=== PATIENT | male | born 1985 | race Caucasian/White ===

== ENCOUNTER 2024-05-24 10:35 | Emergency (ER) | payer OTHER, SELFPAY ==
--- NOTE | ~2024-05-24 | XR_ITS ---
EXAMINATION: XR chest 2V DATE: 05/24/2024 11:20 INDICATION: Cough and congestion. TECHNIQUE: Frontal and lateral views of the chest were obtained. COMPARISON: Chest 2 views 12/28/2016 FINDINGS: A calcified right lung nodule and calcified right hilar lymph nodes are consistent with old granulomatous disease. No pleural effusion or pneumothorax. The heart size is normal. IMPRESSION: 1. No acute cardiopulmonary disease. Reviewed, dictated and finalized at location A. MERCE ANALYST
[2024-05-24 10:44] VITALS: BP 157/87; PULSE 87; RESP 18; TEMP 36.8; O2SAT 99
[2024-05-24 10:53] VITALS: BP 157/87; PULSE 87; RESP 18; TEMP 36.8; O2SAT 99
--- NOTE | 2024-05-24 10:59 | ED_ITS ---
HPI - URI/Sore Throat General Chief Complaint: Upper Respiratory Infection Stated Complaint: Congestion Time Seen by Provider: 05/24/24 11:03 Source: patient, RN notes reviewed and old records reviewed Mode of arrival: ambulatory Limitations: no limitations History of Present Illness HPI Narrative: 38 year old male who presents to [facility] care with 3-4 day history of cough with congestion with patient expectorating brown green phlegm, Patient reports that he has had some chills and sweats. unknown for sure if fever. Patient reports no sore throat or any ear pain, admits to some dyspnea when he gets to coughing a lot.Patient reports that he has been taking Mucinex and also some Tylenol for his symptoms. MD elicited complaint: cough, rhinorrhea, nasal congestion and other (chills and sweats) Pertinent past history: pneumonia (with sepsis) and other (tobacco use) Onset (ago): day(s) (3-4) Pain scale (0-10): 4 Description of mucous: green and other (brownish) Able to tolerate fluids by mouth: Yes Treatments prior to arrival: acetaminophen and other (Mucinex) Related Data Home Medications Medication Instructions Recorded Confirmed Allergy Med. 05/24/24 omeprazole 05/24/24 Allergies Allergy/AdvReac Type Severity Reaction Status Date / Time No Known Allergies Allergy Unverified 05/24/24 10:44 Review of Systems Review of Systems: CONSTITUTIONAL:Reports malaise, chills, sweats, no known documented fever. EYES: Denies visual changes, redness, or discharge. ENT: Reports rhinorrhea, congestion, no sinus pain,no otalgia and no sore throat. CARDIOVASCULAR: Denies chest pain, palpitations, or edema. RESPIRATORY: Reports productive cough.? Denies acute dyspnea, states some shortness of breath when he gets coughing a lot. GASTROINTESTINAL: Denies abdominal pain, nausea, vomiting, diarrhea SKIN: Denies rash or itching. MUSCULOSKELETAL: Denies myalgia. NEUROLOGIC: Denies headache. All systems reviewed & are unremarkable except as noted in HPI and below PMFSH Past Medical History Medical History (Updated 05/25/24 @ 00:00 by Jose Francisco Conroy) GERD (gastroesophageal reflux disease) Pneumonia with sepsis Surgical History Surgical History (Updated 05/24/24 @ 11:23 by Mar Barragan NP) History of tonsillectomy Social History Social History (Updated 05/24/24 @ 11:22 by Mar Barragan NP) Smoking status: Current every day smoker Tobacco type: cigarettes Alcohol intake: current Substance use type: does not use Living arrangements: with family Gender identity (if verbalized by the patient): Male Comments At time of signature, agree with nursing past medical, surgical, social and family history. There is no relevant family history pertinent to the presenting complaint Exam Narrative: GENERAL: Well-appearing, well-nourished, and in no acute distress. HEAD: Normocephalic EYES: PERRLA, conjunctivae clear ENT: Nares clear, turbinates edematous and erythematous, clear nasal discharge. Mucous membranes moist. TM pearly esquivel with dull light reflex bilaterally; no tragal tenderness. Oropharynx erythematous without lesions. Tonsils not present and without exudate, no drooling, no hoarseness, no trismus, uvula midline.post nasal drainage noted NECK: Supple. No lymphadenopathy CHEST: coarse in bases on auscultation, breath sounds equal. No wheezing, rhonchi, rales, or stridor. No respiratory distress, speaks in full sentences.productive coughSAO2 99% on room air HEART: Regular rate and rhythm. No murmur heard. SKIN: Warm, dry, no rash. NEURO: Alert and oriented x3. PSYCH: Normal mood and affect Course Course Emergency Course: Patient is aware of diagnosis, understands and agrees to treatment plan.? Anticipatory guidance given.? Patient agrees to follow-up as directed and is aware of reasons to seek care at the emergency department. Portions of this record may have been created with voice recognition software Level of Care: Express Care Visit Vital Signs Vital signs: Vital Signs Temperature 36.8 C 05/24/24 10:44 Pulse Rate 87 05/24/24 10:44 Respiratory Rate 18 05/24/24 10:44 Blood Pressure 157/87 H 05/24/24 10:44 Pulse Oximetry 99 05/24/24 10:44 Oxygen Delivery Room Air 05/24/24 10:44 Temperature 36.8 C 05/24/24 10:53 Pulse Rate 87 05/24/24 10:53 Respiratory Rate 18 05/24/24 10:53 Blood Pressure 157/87 H 05/24/24 10:53 Pulse Oximetry 99 05/24/24 10:53 Oxygen Delivery Room Air 05/24/24 10:53 reviewed MDM - URI/Sore Throat MDM Narrative Medical decision making narrative: Differential diagnosis considered: Rousseau virus, strep pharyngitis, allergic rhinitis, upper respiratory tract infection, sinusitis, rhinosinusitis, nasopharyngitis. viral pharyngitis, otitis media, otitis externa, pneumonia, bronchitis, viral cough syndrome, viral syndrome, and influenza.? Exam findings show no acute concerns or changes; patient is non-toxic appearing and is in no distress.? Patient is appropriate for outpatient treatment and follow-up. Differential Diagnosis Differential diagnosis: Likely upper respiratory infection, viral infection, bronchitis and other (acute cough and congestion) Medical Records Attestation: I reviewed the patient's medical records. Lab Data Attestation: I reviewed the patient's lab results. Imaging Data Attestation: I personally reviewed and interpreted this imaging study as follows: My impression: no acute cardiopulmonary disease Radiologist's impression: [place] [address] XRay Report Signed Patient: Jacinto Monroy : 1985 MR#: [id number] Age: 38 Acct:[id number] Loc: [facility] ADM Date: 05/24/24Attending Dr: Ordering Physician: Mar Barragan APRN Date of Service: 05/24/24 Procedure(s): XR chest 2V Accession Number(s): [id number] cc: Erika, Flako KIM; Mar Barragan APRN~ EXAMINATION: XR chest 2V DATE: 05/24/2024 11:20 INDICATION: Cough and congestion. TECHNIQUE: Frontal and lateral views of the chest were obtained. COMPARISON: Chest 2 views 12/28/2016 FINDINGS: A calcified right lung nodule and calcified right hilar lymph nodes are consistent with old granulomatous disease. No pleural effusion or pneumothorax. The heart size is normal. IMPRESSION: 1. No acute cardiopulmonary disease. Reviewed, dictated and finalized at location A. E INFORMATICIST Dictated By: Elliot Thapa MD 05/24/24 1136 Signed By: <Electronically signed by Elliot Thapa MD in OV> Critical Care Time Critical Care Time Critical Care Time: No Discharge Plan Discharge Clinical Impression: Bronchitis Patient Disposition: Home, Self-Care Condition: Stable Instructions: Antibiotic Form, Acute Bronchitis (ED) Additional Instructions: Increase fluids especially juices and water [id number] cough and cold medicine of your choice for your symptoms Zyrtec Claritin or Lorraine daily may include Coricidin brand decongestant due to elevation of blood pressure Continue your inhaler/nebulizer as directed Steroids as directed--take with food heat to the face 20-30 minutes 4-6 times a day for pain Salt water gargles, throat lozenges or throat sprays as desired Antibiotic as directed--finish the medication Tylenol or ibuprofen for any fever pain If your symptoms persist, change or worsen significantly before you can contact your personal physician then please, without delay, go to the emergency department for further evaluation. Follow-up with PCP in 7-10 days or sooner if needed Follow up with PCP soon in regards to your blood pressure which is elevated above threshold for referral. Blood pressure above 120/80 may indicate pre- hypertension. Blood 157/87 Prescriptions: New azithromycin 250 mg tablet See Rx Instructions .ROUTE .COMPLEX Qty: 6 0RF Rx Instructions: For 250 mg dose pack: take 500 mg today (day 1), then 250 mg for 4 days (days 2-5) prednisone 20 mg tablet 20 mg PO BID Qty: 10 0RF albuterol sulfate 90 mcg/actuation HFA aerosol inhaler 2 puff inhalation QID PRN (Reason: shortness of breath or wheezing) Qty: 8.5 0RF No Action Allergy Med. omeprazole Follow-up/Referrals: Erika,MD Flako [Primary Care Provider] - Time of Disposition: 11:47 Quality Beck Coma Scale Eyes: Open Verbal: Oriented and Alert Motor: Follows Commands [place] Coma Total Score: 15
== END 2024-05-24 11:49 | disposition home or self-care (01) ==
PROVIDERS: Emergency Provider Registered Nurse; PCP Hospitalist
DX: J40 Bronchitis, not specified as acute or chronic (principal); F17.210 Nicotine dependence, cigarettes, uncomplicated; K21.9 Gastro-esophageal reflux disease without esophagitis
CPT/HCPCS: 71046; 99213; G0463

== ENCOUNTER 2024-10-06 10:21 | Emergency (ER) | payer OTHER, SELFPAY ==
[2024-10-06 10:28] VITALS: BP 153/110; PULSE 102; RESP 16; TEMP 36.7; O2SAT 96
--- NOTE | 2024-10-06 10:28 | ED_ITS ---
HPI - URI/Sore Throat General Chief Complaint: Upper Respiratory Infection Stated Complaint: Eye Problem/Left Ear Pain/Congestion Time Seen by Provider: 10/06/24 10:46 Source: patient, RN notes reviewed and old records reviewed Mode of arrival: ambulatory Limitations: no limitations History of Present Illness HPI Narrative: 38-year-old male presents to the [facility] with 1 day history of left ear pain. Sinus congestion for 4 days, clear eye drainage for day. Has taking cold and flu medication with no relief Related Data Home Medications ?Medication ?Instructions ?Recorded ?Confirmed ?Last Taken ?Type Allergy Med. 05/24/24 Unknown History omeprazole 05/24/24 Unknown History Allergies Allergy/AdvReac Type Severity Reaction Status Date / Time No Known Allergies Allergy Unverified 10/06/24 10:31 Review of Systems Review of Systems: All systems reviewed & are unremarkable except as noted in HPI and below Constitutional: Constitutional: Reports no additional constitutional complaints ENT: Reports as per HPI Cardiovascular: Cardiovascular: Reports no additional cardiovascular complain ts, Denies chest pain and Denies dyspnea Respiratory: Respiratory: Reports no additional respiratory complaints, Denies chest congestion, Denies cough and Denies dyspnea Musculoskeletal: Musculoskeletal: Reports no additional musculoskeletal complaints Integumentary/Breasts: Skin/Breast: Reports system reviewed and no additional complaints, except as docu PMFSH Past Medical History Medical History GERD (gastroesophageal reflux disease) Pneumonia with sepsis Surgical History Surgical History History of tonsillectomy Social History Social History Smoking status: Current every day smoker Tobacco type: cigarettes Alcohol intake: current Substance use type: does not use Living arrangements: with family Gender identity (if verbalized by the patient): Male Comments At the time of my signature, I reviewed and agree with the nursing past medical, surgical, social, and family history. There is no relevant family history pertinent to the patient complaint. Exam Const: General: cooperative, healthy appearing, comfortable, no acute distress, well developed, alert and well nourished Nutritional Appearance: well nourished Orientation/consciousness: patient oriented x3 Limitations: no limitations HENMT: Head: normal to inspection Ears: hearing grossly normal bilaterally, external ears normal, EAC's normal, mastoids normal, no periauricular adenopathy and TM abnormal bulging on the left and erythematous on the left Face/Nose/Sinus: Normal external nose present, Abnormal mucous membranes and turbinates present boggy and erythematous, Nasal discharge present and sinus tenderness Mouth: Yes Normal oral and palatal mucosa present, Yes lip normal, Yes tongue normal and Yes moist mucous membranes Throat: posterior oropharynx normal, uvula midline and no uvular edema Eyes: General: appearance normal, both eyes and all related structures Alignment and Position: alignment normal Neck: Neck: normal visual inspection, full ROM, no lymphadenopathy and no meningeal signs Chest: Chest palpation & inspection: normal inspection of the chest Resp: Effort & Inspection: normal respiratory effort and able to speak in complete sentences Auscultation: clear to auscultation bilaterally, no crackles, no rales, no rhonchi and no wheezes Cardio: Rate: regular rate Skin: General skin exam: normal color and no rashes or lesions noted Neuro: General: patient oriented x3, gait normal, moves all extremities and no meningeal signs Cognition (Neuro): normal cognition Speech: normal speech Gait exam (Neuro): Normal gait present Extrem: General: normal to inspection, full ROM, capillary refill normal and normal gait Psych: Appearance: grossly normal and well kempt Mental Status: mental status grossly normal Speech and movement: Normal speech and movement present and Clear speech present Affect: normal affect Attitude: cooperative Course Course Level of Care: Express Care Visit Vital Signs Vital signs: Vital Signs Temperature 98.1 F 10/06/24 10:28 Pulse Rate 102 H 10/06/24 10:28 Respiratory Rate 16 10/06/24 10:28 Blood Pressure 153/110 H 10/06/24 10:28 Pulse Oximetry 96 10/06/24 10:28 Oxygen Delivery Room Air 10/06/24 10:28 Temperature 98.1 F 10/06/24 10:28 Pulse Rate 102 H 10/06/24 10:28 Respiratory Rate 16 10/06/24 10:28 Blood Pressure 155/99 H 10/06/24 10:32 Pulse Oximetry 96 10/06/24 10:28 Oxygen Delivery Room Air 10/06/24 10:28 Reviewed MDM - URI/Sore Throat MDM Narrative Medical decision making narrative: Patient sitting in exam room. Nontoxic, vitals stable. Patient presents with 4 day history of sinus congestion, left ear pain for 1 day. Patient appropriate for outpatient treatment of left otitis media and sinusitis. Discharge instructions reviewed with patient, as well as provided in writing per nursing staff. The instructions also include specific and strict return/GO TO THE ER as well as f/u information. All questions have been answered, and the patient deny any further questions with discharge and discharge plan. Some parts of this dictation were generated by voice recognition software and may contain typographical and/or grammatical inaccuracies. Differential Diagnosis Differential diagnosis: Likely upper respiratory infection, otitis media, sinusitis, viral infection, bronchitis, influenza and pharyngitis Critical Care Time Critical Care Time Critical Care Time: No Discharge Plan Discharge Clinical Impression: Acute left otitis media Sinusitis Qualifiers: Sinusitis location: pansinusitis Chronicity: acute Recurrence: not specified as recurrent Qualified Code(s): J01.40 - Acute pansinusitis, unspecified Patient Disposition: Home Condition: Stable Instructions: Antibiotic Form, Sinusitis (ED), Ear Infection (GEN) Additional Instructions: It is very important to treat your symptoms. Drink plenty of water, Gatorade, Pedialyte, ice pops or Jell-O. -Alternate Tylenol and Motrin per package directions for fever or pain. You can alternate every 4 hours -Antihistamine medication such as Zyrtec/Claritin/Lorraine during the day can help improve symptoms. -doing daily nasal irrigations can help relieve pressure your sinuses. Things like a Neti pot -Use Flonase twice a day for 5 days then daily to help reduce the inflammation and dry up your sinuses. -You can also use Mucinex. Be sure to drink plenty of water with this medication at least 8 ounces with every dose and it is important to drink 8 to 10 glasses of water per day. Water is a natural decongestant -Eat and drink things that are easy to swallow, like tea or soup, or popsicles. -Oral rinses such as: Salt water gargles and/or may use topical anesthetic (eg. Chloraseptic spray) or lozenges to relieve dryness or throat pain). -Frequent hand washing or hand drink waiter is one of the best ways to prevent spread of infection. -Using a vaporizer or humidifier at night will also help thin secretions and help with coughing up phlegm. -Follow up with primary care provider in 7-10 days if condition is not improving - For new or worsening symptoms go directly to the nearest ER Patient Language: Bengali Prescriptions: New amoxicillin 875 mg tablet 875 mg PO Q12H Qty: 20 0RF No Action Allergy Med. omeprazole azithromycin 250 mg tablet See Rx Instructions .ROUTE .COMPLEX Qty: 6 0RF Rx Instructions: For 250 mg dose pack: take 500 mg today (day 1), then 250 mg for 4 days (days 2-5) prednisone 20 mg tablet 20 mg PO BID Qty: 10 0RF albuterol sulfate 90 mcg/actuation HFA aerosol inhaler 2 puff inhalation QID PRN (Reason: shortness of breath or wheezing) Qty: 8.5 0RF Follow-up/Referrals: Erika,MD Flako [Primary Care Provider] - 2 Weeks ([facility] care follow up ) Stand Alone Forms: Work/School Release IP Time of Disposition: 10:55
[2024-10-06 10:32] VITALS: BP 155/99
--- OUTSIDE RECORDS SUMMARY | 2024-10-06 10:56 | XMS_ITS | Clinical Summary ---
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 Active omeprazole (PriLOSEC) 40 mg capsuleIndicatio ns:Gastroesophag eal reflux disease without esophagitis Take 1 capsule (40 mg total) by mouth daily 90 capsule 3 01/24/2024 01/24/20 25 Active Active Problems Problem Noted Date Diagnosed Date Elevated liver enzymes 01/24/2024 Assessment & Plan (01/24/2024 4:04 PM CDT): AST and ALT consistently elevated No prior imaging Drinks 4-6 drinks approx 4 times/week Discussed reducing amount of alcohol Recheck labs 6 months; if still elevated will order liver US External hemorrhoids 01/20/2022 Assessment & Plan (02/11/2023 9:41 AM CDT): Continue stool softener to avoid straining. Sitz baths for comfort. Okay to return to work with activities unrestricted. Patient will call us back with any further questions or concerns. Assessment & Plan (01/28/2023 9:36 AM CDT): Patient will continue with a good bowel regimen to avoid straining. Continue Sitz baths for comfort. We will see him back in several weeks to reassess his progress. He can call sooner if anything changes. Assessment & Plan (01/20/2022 2:26 PM CDT): Patient continues to have some blood in stool; colonoscopy 1 year ago demonstrated hemorrhoids, last at that time Patient reports no pain associated with hemorrhoids, has blood for few days every 2-3 weeks; mostly in the toilet after bowel movement Will refer to GI for further management BRBPR (bright red blood per rectum) 12/19/2020 Assessment & Plan (12/03/2022 11:38 AM CDT): Patient with prolapsing grade 3 hemorrhoids. At least in the left lateral hemorrhoidal column and likely in the right anterior as well. We will set him up for hemorrhoidectomy. We have preliminarily discussed good bowel habits with the patient to prevent these from happening in the future. Pre-admission testing will be sent in. All questions answered. Assessment & Plan (02/04/2021 1:30 PM CDT): Colonoscopy and IRC if needed Assessment & Plan (12/19/2020 12:53 PM CDT): Patient reports that he has had hemorrhoids for long duration, however recently has noted increased amounts of blood in stool and toilet Will refer to GI for further evaluation and possible colonoscopy to rule out other sources of lower GI bleeding Encouraged patient to use stool softener as well as methods in techniques to reduce constipation Will follow-up after GI and possible colonoscopy for other treatments as needed Class 1 obesity due to exces s calories without serious comorbidity with body mass index (BMI) of 32.0 to 32.9 in adult 12/19/2020 Assessment & Plan (12/19/2020 12:55 PM CDT): Stable, discussed with patient importance of dietary control for weight loss, encouraged portion control decreasing overall total calories per day Patient has a generally active job Low testosterone in male 07/15/2018 Assessment & Plan (07/15/2018 1:04 PM MANAGER COMPENSATION): Images from the original note were not included. Testosterone 240 - 950 ng/dL 234 Comment: 2 weeks ago was 232 Moderate tobacco use disorder 06/17/2018 Assessment & Plan (01/20/2022 2:27 PM CDT): Decreasing tobacco use; encouraged patient continue to work on changes If patient desires, will discuss about medical options Assessment & Plan (12/19/2020 12:54 PM CDT): Stable, improving Patient has been working on decreasing tobacco use, currently smoking about 1/2 pack per day At this time patient would like to defer medical therapy, and will follow-up at future date if he is unable to successfully quit on his own Assessment & Plan (07/15/2018 8:44 AM MANAGER COMPENSATION): Quit Smoking https://smokefree.gov/ Nicotine replacement therapy (NRT) is the most commonly used family of quit smoking medications. NRT reduces withdrawal feelings by giving you a small controlled amount of nicotine?but none of the other dangerous chemicals found in cigarettes. This small amount of nicotine helps satisfy your craving for nicotine and reduces the urge to smoke. NRT can t do all the work. It can help with withdrawal and cravings. But it won t completely take away the urge to smoke. Even if you use NRT to help you stop smoking, quitting can still be hard. Combining NRT with other strategies can improve your chances of quitting and staying quit. To give yourself the best chance for success, explore other quit methods you can combine with medication. Also think about: Developing a quit plan. Using quit programs such as SmokefreeTXT or calling a quitline. Using the [employer]idy[employer] jose for tips and inspiration to help you be smokefree. Prepare, Reduce creavings and Triggers, Reduce stress, Get Active, Eat Healthy Gum, Patches, Inhaler, lozenges, nasal spray or medications like Wellbutrin, Chantix Remind yourself of the rewards of quitting to help yourself stay on track: 20 minutes: heart rate, blood pressure drop 12 hours: carbon monoxide in blood stream drops to normal 2 weeks-3 months: circulation, lung function improve; heart attack risk begins to drop 1-9 months: cough less, breathe easier 1 year: risk of coronary heart disease cut in half 2-5 years: risk of cancer of mouth, throat, esophagus, bladder cut in half; stroke risk is reduced to that of a nonsmoker 10 years: half as likely to from lung cancer; risk of kidney or pancreatic cancer decreases 15 years: risk of coronary heart disease same as non-smoker s risk EXTRA MONEY Down to 5 per day Could not tolerate the patches Could not tolerate the gum Will try Chantix Went over side effects. Patient will notify me if experiences side effects. Also offered Wellbutrin. Assessment & Plan (06/18/2018 4:56 PM MANAGER COMPENSATION): Quit Smoking https://smokefree.gov/ Nicotine replacement therapy (NRT) is the most commonly used family of quit smoking medications. NRT reduces withdrawal feelings by giving you a small controlled amount of nicotine?but none of the other dangerous chemicals found in cigarettes. This small amount of nicotine helps satisfy your craving for nicotine and reduces the urge to smoke. NRT can t do all the work. It can help with withdrawal and cravings. But it won t completely take away the urge to smoke. Even if you use NRT to help you stop smoking, quitting can still be hard. Combining NRT with other strategies can improve your chances of quitting and staying quit. To give yourself the best chance for success, explore other quit methods you can combine with medication. Also think about: Developing a quit plan. Using quit programs such as SmokefreeTXT or calling a quitline. Using the [employer] jose for tips and inspiration to help you be smokefree. Prepare, Reduce creavings and Triggers, Reduce stress, Get Active, Eat Healthy Gum, Patches, Inhaler, lozenges, nasal spray or medications like Wellbutrin, Chantix Remind yourself of the rewards of quitting to help yourself stay on track: 20 minutes: heart rate, blood pressure drop 12 hours: carbon monoxide in blood stream drops to normal 2 weeks-3 months: circulation, lung function improve; heart attack risk begins to drop 1-9 months: cough less, breathe easier 1 year: risk of coronary heart disease cut in half 2-5 years: risk of cancer of mouth, throat, esophagus, bladder cut in half; stroke risk is reduced to that of a nonsmoker 10 years: half as likely to from lung cancer; risk of kidney or pancreatic cancer decreases 15 years: risk of coronary heart disease same as non-smoker s risk EXTRA MONEY Wants to stop Trying to cut back Smokes 1/2 pack per day Tried patches before and did not tolerate them Will try nicotine gum alternating with regular bubble gum Elevated blood pressure reading 06/17/2018 Assessment & Plan (01/24/2024 4:03 PM CDT): BP at visit; 142/94 States his blood pressure is within normal range at home Continue to monitor BP at home Work on dietary modifications Assessment & Plan (07/15/2018 8:49 AM MANAGER COMPENSATION): BP still elevated over 130/80 Will increase Lisinopril to 10 mg daily Pt. To send in BP readings Denies side effects Lifestyle changes can help you control and prevent high blood pressure, even if you're taking blood pressure medication. Here's what you can do: Eat healthy foods. Eat a healthy diet. Try the Dietary Approaches to Stop Hypertension (DASH) diet, which emphasizes fruits, vegetables, whole grains, poultry, fish and low-fat dairy foods. Get plenty of potassium, which can help prevent and control high blood pressure. Eat less saturated fat and trans fat. Decrease the salt in your diet. A lower sodium level -- 1,500 milligrams (mg) a day -- is appropriate for people 51 years of age or older, and individuals of any age who are black or who have hypertension, diabetes or chronic kidney disease. Maintain a healthy weight. Keeping a healthy weight, or losing weight if you're overweight or obese, can help you control your high blood pressure and lower your risk of related health problems. If you're overweight, losing even 5 pounds (2.3 kilograms) can lower your blood pressure. Increase physical activity. Regular physical activity can help lower your blood pressure, manage stress, reduce your risk of several health problems and keep your weight under control. Limit alcohol. Even if you're healthy, alcohol can raise your blood pressure. If you choose to drink alcohol, do so in moderation. For healthy adults, that means up to one drink a day for women of all ages and men older than age 65, and up to two drinks a day for men age 65 and younger. One drink equals 12 ounces of beer, 5 ounces of wine or 1.5 ounces of 80-proof liquor. Don't smoke. Tobacco injures blood vessel ruby and speeds up the process of hardening of the arteries. If you smoke, ask your doctor to help you quit. Manage stress. Reduce stress as much as possible. Practice healthy coping techniques, such as muscle relaxation, deep breathing or meditation. Getting regular physical activity and plenty of sleep can help, too. Notify the office for blood pressure greater than 130/80 Assessment & Plan (06/18/2018 5:09 PM MANAGER COMPENSATION): Pt. Has consistent BP greater than 130/80, smokes, BMI 33, Mixed hyperlipidemia, Family hx Reports having a hard time getting a full erection also with not being able to keep an erection Will start a low dose of Lisinopril 5 mg daily. Pt to take BP and record. Try to modify lifestyle with hopes in improving BP and Lipid panel. Lifestyle changes can help you control and prevent high blood pressure, even if you're taking blood pressure medication. Here's what you can do: Eat healthy foods. Eat a healthy diet. Try the Dietary Approaches to Stop Hypertension (DASH) diet, which emphasizes fruits, vegetables, whole grains, poultry, fish and low-fat dairy foods. Get plenty of potassium, which can help prevent and control high blood pressure. Eat less saturated fat and trans fat. Decrease the salt in your diet. A lower sodium level -- 1,500 milligrams (mg) a day -- is appropriate for people 51 years of age or older, and individuals of any age who are black or who have hypertension, diabetes or chronic kidney disease. Maintain a healthy weight. Keeping a healthy weight, or losing weight if you're overweight or obese, can help you control your high blood pressure and lower your risk of related health problems. If you're overweight, losing even 5 pounds (2.3 kilograms) can lower your blood pressure. Increase physical activity. Regular physical activity can help lower your blood pressure, manage stress, reduce your risk of several health problems and keep your weight under control. Limit alcohol. Even if you're healthy, alcohol can raise your blood pressure. If you choose to drink alcohol, do so in moderation. For healthy adults, that means up to one drink a day for women of all ages and men older than age 65, and up to two drinks a day for men age 65 and younger. One drink equals 12 ounces of beer, 5 ounces of wine or 1.5 ounces of 80-proof liquor. Don't smoke. Tobacco injures blood vessel ruby and speeds up the process of hardening of the arteries. If you smoke, ask your doctor to help you quit. Manage stress. Reduce stress as much as possible. Practice healthy coping techniques, such as muscle relaxation, deep breathing or meditation. Getting regular physical activity and plenty of sleep can help, too. Notify the office for blood pressure greater than 130/80 Genital warts 06/17/2018 Assessment & Plan (07/15/2018 8:47 AM MANAGER COMPENSATION): Large number/cluster of genital warts to the anterior side/base of the penis No improvement with Compound W It looks per MR that he was given Imiquimod cream in 2014. Has been present and gradually worsening over the last 6 months to year but unsure if it has ever went away. By the looks of it, patient needs surgical removal and ongoing treatment and suppression of warts. Will put in a urology consult for them to remove genital warts. Since it may take several weeks to months to get an appointment, will have him do topical treatment Surgical excision removes warts promptly, providing a wart-free state. It can be used in patients with limited, average, or extensive wart involvement. [6] Surgical excision may serve as a precursor to other treatments in extensive cases by debulking widely involved areas. [6] Methods include tangential scissor excision, shave excision, curettage, and electrosurgery. Alternative therapies include CO? laser ablation and electrodessication. These more invasive techniques are useful for patients with a large area of wart involvement. They render a patient free of warts within 1 visit. Warts >10 mm: Surgical excision (or if persistent) Adjunctive: Imiquimod applied as pretreatment Genital Warts Apply 5% cream to affected area qhs for 3 nights/week Apply at bedtime and wash off in 6-10 hours May repeat weekly cycles for up to 16 weeks Treatment can be challenging, as there is no cure and recurrences are common. Referral made for Derm at [facility] Having a hard time getting appointment-he states that they have problems with his insurance Will call today and get him an appointment-if not, will refer somewhere else Appointment made for August 09, 2018 2:00 Assessment & Plan (06/18/2018 6:02 PM MANAGER COMPENSATION): Large number/cluster of genital warts to the anterior side/base of the penis No improvement with Compound W It looks per MR that he was given Imiquimod cream in 2014. Has been present and gradually worsening over the last 6 months to year but unsure if it has ever went away. By the looks of it, patient needs surgical removal and ongoing treatment and suppression of warts. Will put in a urology consult for them to remove genital warts. Since it may take several weeks to months to get an appointment, will have him do topical treatment Surgical excision removes warts promptly, providing a wart-free state. It can be used in patients with limited, average, or extensive wart involvement. [6] Surgical excision may serve as a precursor to other treatments in extensive cases by debulking widely involved areas. [6] Methods include tangential scissor excision, shave excision, curettage, and electrosurgery. Alternative therapies include CO? laser ablation and electrodessication. These more invasive techniques are useful for patients with a large area of wart involvement. They render a patient free of warts within 1 visit. Warts >10 mm: Surgical excision (or if persistent) Adjunctive: Imiquimod applied as pretreatment Genital Warts Apply 5% cream to affected area qhs for 3 nights/week Apply at bedtime and wash off in 6-10 hours May repeat weekly cycles for up to 16 weeks Treatment can be challenging, as there is no cure and recurrences are common. Other male erectile dysfunction 06/17/2018 Assessment & Plan (07/15/2018 8:43 AM MANAGER COMPENSATION): Reports unable to get a complete erection, unable to sustain an erection. CheckedTestosterone level-low x 2 Will check on Testosterone replacement Pt. Does seem to have elevated BP's at his visits, family hx of htn, heart disease. He smokes, obese, HLD. Talked to him regarding heart diease and association with erectile dysfunction. Sometimes this is an early sign in young med. Talked to him about losing wt., stop smoking, improve diet and having a BP less than 130/80. Erectile Dysfunction Management Reduce stress. Try alternative sexual techniques for closeness, fondling, foreplay and mutual masturbation. Get regular exercise. Stop smoking and reduce Alcohol intake. Maintain a normal blood pressure and try to lose weight. If you have diabetes, you need to manage your blood sugar to have your A1C as close to your goal of less than 7. If you have high cholesterol, you need to reduce it to the normal range by eating a heart healthy diet. If you are depressed, you may need to see a therapist and be started on medication. Couples Counseling may help. May try a Vitamin E daily supplement. Green[place] Red Ginseng 900 mg three times a day supplement may help. Some medications may help if not contraindicated, like Viagra (Sildenafil), Levitra (Vardenafil), Cialis (Tadalafil). Assessment & Plan (06/18/2018 4:59 PM MANAGER COMPENSATION): Reports unable to get a complete erection, unable to sustain an erection Will check Testosterone level Pt. Does seem to have elevated BP's at his visits, family hx of htn, heart disease. He smokes, obese, HLD. Talked to him regarding heart diease and association with erectile dysfunction. Sometimes this is an early sign in young med. Talked to him about losing wt., stop smoking, improve diet and having a BP less than 130/80. Erectile Dysfunction Management Reduce stress. Try alternative sexual techniques for closeness, fondling, foreplay and mutual masturbation. Get regular exercise. Stop smoking and reduce Alcohol intake. Maintain a normal blood pressure and try to lose weight. If you have diabetes, you need to manage your blood sugar to have your A1C as close to your goal of less than 7. If you have high cholesterol, you need to reduce it to the normal range by eating a heart healthy diet. If you are depressed, you may need to see a therapist and be started on medication. Couples Counseling may help. May try a Vitamin E daily supplement. [place]ic Red Ginseng 900 mg three times a day supplement may help. Some medications may help if not contraindicated, like Viagra (Sildenafil), Levitra (Vardenafil), Cialis (Tadalafil). Mixed hyperlipidemia 06/17/2018 Assessment & Plan (07/15/2018 1:13 PM MANAGER COMPENSATION): Lipid abnormalities are unchanged. Nutritional counseling was provided. Lipids will be reassessed in 6 months. Encourage healthy diet. Assessment & Plan (06/18/2018 5:05 PM MANAGER COMPENSATION): Lipid abnormalities are unchanged. Nutritional counseling was provided. Lipitor 10 mg daily Lipids will be reassessed in 6 months. Encouraged to stop smoking, improve his diet, loss wt. Reports family hx of htn, heart disease Will start on low dose statin LDL-131, CHO 232, Trig 301 Gastroesophageal reflux disease without esophagi tis 12/30/2017 Assessment & Plan (01/24/2024 4:03 PM CDT): Chronic, stable, well controlled Continue Omeprazole 40 mg daily Assessment & Plan (01/20/2022 2:26 PM CDT): Well controlled, continues to have some worsening symptoms on Prilosec 20 mg Increase Prilosec to 40 mg daily Atopic rhinitis 11/11/2013 Resolved Problems Problem Noted Date Diagnosed Date Resolved Date Obesity (BMI 30-39.9) 06/18/20182023 Assessment & Plan (07/15/2018 8:45 AM MANAGER COMPENSATION): Obesity is unchanged. Pt. Has been trying to eat healthier Discussed the patient's BMI. The BMI is above average; BMI management plan is completed. General weight loss/lifestyle modification strategies discussed (elicit support from others; identify saboteurs; non-food rewards, etc). Diet= low-carb Limit white bread, rice, pasta, potatoes, juice, energy drinks, coffee creamers with sugar, sugar sodas, candy, cake, cookies, ice cream. Be more careful with starchy vegetables like corn, carrots, and fruits. Stay away from processed foods, fast foods, fried foods. The cornerstone of this diet is lean grilled meats, green salads or cooked greens, fat-free milk, cottage cheese, nuts like [id number], protein bars with 10-15 g of protein and 20-30 g of carbohydrate. Choose whole grain breads and pastas, brown rice, sweet potatoes, read onions--these whole grains absorb more slowly thus blood sugar does not surge so high so quickly. Avoid drinking juice, eat a piece of fruit instead. Assessment & Plan (06/18/2018 4:54 PM MANAGER COMPENSATION): Obesity is unchanged. Discussed the patient's BMI. The BMI is above average; BMI management plan is completed. General weight loss/lifestyle modification strategies discussed (elicit support from others; identify saboteurs; non-food rewards, etc). Diet= low-carb Limit white bread, rice, pasta, potatoes, juice, energy drinks, coffee creamers with sugar, sugar sodas, candy, cake, cookies, ice cream. Be more careful with starchy vegetables like corn, carrots, and fruits. Stay away from processed foods, fast foods, fried foods. The cornerstone of this diet is lean grilled meats, green salads or cooked greens, fat-free milk, cottage cheese, nuts like [id number], protein bars with 10-15 g of protein and 20-30 g of carbohydrate. Choose whole grain breads and pastas, brown rice, sweet potatoes, read onions--these whole grains absorb more slowly thus blood sugar does not surge so high so quickly. Avoid drinking juice, eat a piece of fruit instead. Immunizations Immunization Administration Dates Next Due DTP 10/16/1991, 9,06/14/1987,1986,02/11/1987 HiB 09/21/1988 Influenza, Unspecified 04/29/2023(Deferr ed: Patient Refused),03/28/2022(Deferred: Patient Refused),01/01/2022(Deferred: Patient Refused),03/28/2021(Deferred: Patient Refused),06/28/2020(Deferred: Patient Refused),06/28/2020(Deferred: Patient Refused),03/28/2020(Deferred: Patient Refused),06/28/2019(Deferred: Patient Refused),06/28/2019(Deferred: Patient Refused) MMR 10/16/1991,04/13/1988 OPV 10/16/1991, 9,06/14/1987,1986,02/11/1987 Pfizer SARS-CoV-2 Monovalent Vaccination (12+ Yrs) PURPLE 09/26/2020,09/05/2020 Pneumococcal Conjugate Pcv20 01/01/2022 Tdap 01/24/2024,06/01/2011 Surgical History Surgery Date Site/Laterality Comments COLONOSCOPY 02/07/2021 1st HEMORRHOID SURGERY 01/20/2023 Medical History Medical History Date Comments Gastroesophageal reflux disease without esophagi tis 12/30/2017 Pneumonia Family History Medical History Relation Name Comments No Known Problems Brother 1 No Known Problems Brother 2 Hypertension Father Odell Monroy Diabetes Mother Marbella Monroy Diabetes type II Other Family hist ory of Diabetes -Type II; Relation Name Status Comments Brother 1 Alive Brother 2 Alive Father Odell Monroy Alive Mother Marbella Monroy Alive Other Social History Tobacco Use Types Packs/Day Years Used Date Smoking Tobacco: Every Day Cigarettes 0.5 15 Passive Smoke Exposure: Current Smokeless Tobacco: Never Tobacco Cessation:Ready to Q uit: Yes; Counseling Given: Not Answered Comments:Smoking History Packs/day: 0.5 Packs Alcohol Use Standard Drinks/Week Comments Yes 20 (1 standard drink = 0.6 oz pu re alcohol) [facility] [employer] Answer Date Recorded In the past 12 months has e Miro, gas, oil, or water Activation Life threatened to shut off services in your home? No 01/24/2024 Humiliation, Afraid, Rape, and Kick questionnair e Answer Date Recorded Within the last year, have y ou been afraid of your partner or ex-partner? No 01/24/2024 Within the last year, have y ou been humiliated or emotionally abused in other ways by your partner or ex-partner? No Within the last year, have y ou been kicked, hit, slapped, or otherwise physically hurt by your partner or ex-partner? No 01/24/2024 Within the last year, have y ou been raped or forced to have any kind of sexual activity by your partner or ex-partner? No 01/24/2024 Social Connection and Isolat ion Panel [NHANES] Answer Date Recorded In a typical week, how many times do you talk on the phone with family, friends, or neighbors? More than three times a week 01/24/2024 How often do you get togethe r with friends or relatives? More than three times a week 01/24/2024 How often do you attend chur or anabaptism services? More than 4 times per year 01/24/2024 Do you belong to any clubs o r organizations such as pentecostal groups, unions, fraternal or athletic groups, or school groups? Yes 01/24/2024 How often do you attend meet ings of the clubs or organizations you belong to? More than 4 times per year 01/24/2024 Are you , , di vorced, , never , or living with a partner? 01/24/2024 AUDIT-C Answer Date Recorded Q1: How often do you have a drink containing alcohol? 4 or more times a week 01/24/2024 Q2: How many drinks containi ng alcohol do you have on a typical day when you are drinking? 3 or 4 Q3: How often do you have si x or more drinks on one occasion? Monthly 01/24/2024 Overall Financial Resource Strain (CARDIA) Answe r Date Recorded How hard is it for you to pa y for the very basics like food, housing, medical care, and heating? Not hard at all 01/24/2024 PHQ-2 Answer Date Recorded PHQ-2 Total Score (If total score is 3 or more points, staff should administer the PHQ-9) 0 01/24/2024 [facility] Occupat ional [facility] - Occupational Stress Questionnaire Answer Date Recorded Do you feel stress - tense, restless, nervous, or anxious, or unable to sleep at night because your mind is troubled all the time - these days? To some extent 01/24/2024 Exercise Vital Sign Answer Date Recorde d On average, how many days pe r week do you engage in moderate to strenuous exercise (like a brisk walk)? 5 days 01/24/2024 On average, how many minutes do you engage in exercise at this level? 60 min 01/24/2024 Hunger Vital Sign Answer Date Recorded Within the past 12 months, y ou worried that your food would run out before you got the money to buy more. Never true 01/24/20 24 Within the past 12 months, t he food you bought just didn't last and you didn't have money to get more. Never true 01/24/2024 PRAPARE - Transportation Answer Date Re corded In the past 12 months, has l ack of transportation kept you from medical appointments or from getting medications? No 12/27 In the past 12 months, has l ack of transportation kept you from meetings, work, or from getting things needed for daily living? No 01/24/2024 PHQ-9 Answer Date Recorded PHQ-9 Total Score 0 01/24/2024 Housing Stability Vital Sign Answer Abilio e Recorded In the last 12 months, was t here a time when you were not able to pay the mortgage or rent on time? No 01/24/2024 In the past 12 months, how m any times have you moved where you were living? 0 01/24/2024 At any time in the past 12 m [facility], were you homeless or living in a fci (including now)? No 01/24/2024 Personal Safety Answer Date Recorded Have you ever been in or are you currently in a harmful physical or emotional relationship or is someone making you feel afraid or unsafe? 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 Gender Identity Not on file Sexual Orientation Not on file Obstetrics History Last Filed Vital Signs Vital Sign Reading Time Taken Comments Blood Pressure 142/94 01/24/2024 3:37 PM CDT Pulse 68 01/24/2024 3:37 PM CDT Temperature 36.7 C (98 F) 01/24/2024 3:37 PM CDT Respiratory Rate 16 01/24/2024 3:37 PM CDT Oxygen Saturation 98% 01/24/2024 3:37 PM CDT Inhaled Oxygen Concentration - - Weight 107.7 kg (237 lb 6.4 oz) 01/24/2024 3:37 PM CDT Height 182.9 cm (6') 01/24/2024 3:37 PM CDT Body Mass Index 32.2 01/24/2024 3:37 PM CDT Plan of Treatment Health Maintenance Due Date Last Done Comments Covid-19 Vaccine ( season) 2024 09/26/2020, 09/05/2020 Depression Screening 01/23/2025 01/24/2024, 01/01/2022, 12/19/2020, Additional history exists Regular Well Visit/Exam 18-64 01/23/2025 01/24/2024, 12/30/2017 Influenza Vaccine (Season Ended) 2025 DTaP/Tdap/Td Vaccine (8 - Td or Tdap) 01/23/2034 01/24/2024, 06/01/2011, 10/16/1991, Additional history exists Pneumococcal vaccine <65 Completed 01/01/2022 Hepatitis B Screening Completed 01/21/2024 Hepatitis C Screening Completed 01/21/2024 HPV Vaccines Aged Out No longer eligi ble based on patient's age to complete this topic Varicella Vaccines Discontinued Procedures Procedure Name Priority Date/Time Associated Diagnosis Comments HEPATITIS C ANTIBODY Routine 01/21/2024 2:44 PM CDT Encounter for hepatitis C screening test for low risk patient from Last 3 Months or Most Recently Relevant to Health Maintenance Results * Hepatitis C antibody Blood (01/21/2024 2:44 PM CDT) Hep C Ab Nonreactive Nonreactive Comment: Interpretive Data Nonreactive: Antibodies to HCV not detected. Does NOT exclude the possibility of recent exposure to HCV. Equivocal: Equivocal for HCV antibodies. Supplemental molecular testing will be automatically performed to determine infection status in accordance with current CDC screening recommendations. Reactive: Positive for HCV antibodies. This may represent current or past HCV infection. Supplemental molecular testing will be automatically performed to determine current infection status in accordance with current CDC screening recommendations. Interpretive data was last revised on 2019. Testing performed by: [facility], [address] [place] [address], [place]., [address] Blood 01/21/2024 2:44 PM CDT 01/21/2024 8:53 PM CDT us Gissel Sanders NP LAB MICROBIOLOGY - GENERAL ORDER ALFREDO Edited Result - Final CINDY COOK ([place]) 1 [facility] [place] [address] from Last 3 Months or Most Recently Relevant to Health Maintenance Insurance CIGNA IBEW CIGNA CIGNA Advance Directives For more information, please contact: [phone] * Full Code (Latest Code Status on File) Date Activated Date Inactivated Comments 04/03/2022 8:55 AM 04/03/2022 2:23 PM * Full Code Date Activated Date Inactivated Comments 04/03/2022 8:54 AM 04/03/2022 8:55 AM * Full Code Date Activated Date Inactivated Comments 02/07/2021 8:07 AM 02/07/2021 2:22 PM Care Teams Electric Crane Operator Relationship Specialty Start Date End Date Flako James MD [address] [place] [address] PCP - General Family Medicine 12/19/20
--- OUTSIDE RECORDS SUMMARY | 2024-10-06 10:56 | XMS_ITS ---
Care Plan - [facility] Created on: October 06, 2024 JASMINE APPIAH : 1985 Sex: Male Author Organization [facility] Address [address] [place] [id number] Phone Care Team Providers Care Aircraft Servicer Name Role Phone FAUSTO CAGE MD Primary Care Provider [phone] NINO KIM, GIBRAN Anthony
--- OUTSIDE RECORDS SUMMARY | 2024-10-06 10:56 | XMS_ITS | Clinical Summary ---
Author Organization [facility] Address [address] [place] [address] Phone Care Team Providers Care Laser/Electro Optics Technician Name Role Phone FAUSTO CAGE MD Primary Care Provider [phone] GIBRAN ONEILL MD Unavailable Unavailable Reason for Visit and Chief Complaint The Chief Complaint is: COVID exposure on to co-worker, sx of cough & PERSON off & on,along with runny nose-green draiange x 2d, also loss of taste this morning Plan of Treatment - The options include close observation - Last Documented On 06/02/2020 10:35AM ; [facility] - Watch for signs/symptoms of infection, return to the clinic if seen - Last Documented On 06/02/2020 10:35AM ; [facility] Patient is to quarantine for 14 days past last exposure OTC medication for fever and/or bodyaches Call clinic for worsening symptoms or concerns Go to ED for severe difficulty breathing or lethargy - Last Documented On 06/02/2020 10:35AM ; [facility] Pending Tests Order Diagnosis Results Due Ordering P rovider Lab COVID-19 PCR ([facility]) 06/09/20 JESSA BRUNO CLEAT MAKER -C Last Documented On 4 2:45PM ; [facility] Instructions to patient Watch for signs/symptoms of infection, return to the clinic if seen Last Documented On 0 10:30AM ; [facility] Assessments Includes: Assessments from this encounter Findings - Exposure to a viral disease - Last Documented On 06/02/2020 10:35AM ; [facility] - Viral syndrome - Last Documented On 06/02/2020 10:35AM ; [facility] Instructions Includes: Instructions from this encounter Instructions to patient Watch for signs/symptoms of infection, return to the clinic if seen Last Documented On 0 10:30AM ; [facility] Medical Equipment - Implanted Devices Includes: Current Devices No Medical Equipment Recorded Medications Administered Includes: Administered Medications from this encounter No Administered Medications Recorded Vital Signs Includes: Vital Signs from this encounter Vital Name 06/02/2020 10:10A Pulse Rate-Sitting (bpm) 108 Temp-Oral (F) 99 Oxygen Saturation (%) 98 Last Documented: On 06/02/2020 10:10A M ; [facility] Results Includes: Results discussed during this encounter No Results Recorded For Specified Dates History of Present Illness Includes: History of Present Illness from this encounter MILDRED APPIAH is a 34 year old male. Source of patient information was patient. - Not feeling fine - Feeling tired - Feeling poorly (malaise) - No fever - No chills - Headache - No facial pain - No sinus pain - No swollen glands in the neck - No eye symptoms - Nasal discharge - Nasal passage blockage (stuffiness) - Sore throat comes and goes - No ear symptoms - No chest pain or discomfort - No palpitations - Cough dry - Intermittent - No dyspnea - No wheezing - Decreased appetite - No nausea - No vomiting - No abdominal pain - No diarrhea - No increase in urinary frequency - No myalgias - No dizziness - No skin symptoms Patient works at the local [employer]. Denies any recent travel. Pt presents to the clinic with complaints of a dry cough, person, runny nose, nasal congestion, and intermittent sore throat. Pt denies sob, wheezing, or sinus pressure at this time. Pt states that he was exposed to a co worker on that tested positive on wednesday. Pt states that he lost his taste this am. Social History Description Last Updated No travel 06/02/2020 Last Documented On 0 10:35AM ; [facility] Smoking Status Unknown Medical History Includes: Medical History addressed during this encounter Description Last Updated Exposure to a contagious disease 020 Last Documented On 0 10:35AM ; [facility] Family History Includes: Family History addressed during this encounter No Family History Recorded Review of Systems Includes: Review of Systems from this encounter No Review of Systems Recorded Mental Status Includes: Mental Status from this encounter No Mental Status Recorded Functional Status Includes: Functional Status from this encounter No Functional Status Recorded Physical Exam Includes: Physical Exam from this encounter Encounters Encounter Provider Location Date Check-In Time Check-Out Time Diagnosis SICK VISIT JESSA BRUNO CLEAT MAKER-C [facility] 0 10:00AM 10:30AM Exposure To Contagious Viral Disease,Viral Syndrome Insurance Includes: Active Insurance Policies Plan Name Member ID Group # Subscriber Relationship Effect charlotte Dates - [id number] JASMINE APPIAH Self Clinical Notes Includes: Clinical Notes from this encounter No Clinical Notes Recorded
--- OUTSIDE RECORDS SUMMARY | 2024-10-06 10:56 | XMS_ITS | Referral Summary ---
Author Organization [facility] Address [address] [place] [address] Care Team Providers Care Cover Machine Operator Name Role Phone Flako James MD Primary Care Provider [phone] Allergies No known active allergies Medications chlorpheniramine [...] 07/15/2018 Assessment & Plan (07/15/2018 1:04 PM ACCOUNTS PAYABLE CLERK): Images from the original note were not [...] own Assessment & Plan (07/15/2018 8:44 AM ACCOUNTS PAYABLE CLERK): Quit Smoking https://smokefree.gov/ Nicotine replacement therapy (NRT) [...] SmokefreeTXT or calling a quitline. Using the Pinevio jose for tips and inspiration to help [...] Wellbutrin. Assessment & Plan (06/18/2018 4:56 PM ACCOUNTS PAYABLE CLERK): Quit Smoking https://smokefree.gov/ Nicotine replacement therapy (NRT) [...] SmokefreeTXT or calling a quitline. Using the Pinevio jose for tips and inspiration to help [...] modifications Assessment & Plan (07/15/2018 8:49 AM ACCOUNTS PAYABLE CLERK): BP still elevated over 130/80 Will increase [...] 130/80 Assessment & Plan (06/18/2018 5:09 PM ACCOUNTS PAYABLE CLERK): Pt. Has consistent BP greater than 130/80, [...] 06/17/2018 Assessment & Plan (07/15/2018 8:47 AM ACCOUNTS PAYABLE CLERK): Large number/cluster of genital warts to the [...] are common. Referral made for Derm at [facility] Having a hard time getting appointment-he states that they have problems with his insurance Will call today and get him an appointment-if not, will refer somewhere else Appointment made for August 09, 2018 2:00 Assessment & Plan (06/18/2018 6:02 PM ACCOUNTS PAYABLE CLERK): Large number/cluster of genital warts to the [...] 06/17/2018 Assessment & Plan (07/15/2018 8:43 AM ACCOUNTS PAYABLE CLERK): Reports unable to get a complete erection, [...] May try a Vitamin E daily supplement. Portuguese Red Ginseng 900 mg three times a day supplement may help. Some medications may help if not contraindicated, like Viagra (Sildenafil), Levitra (Vardenafil), Cialis (Tadalafil). Assessment & Plan (06/18/2018 4:59 PM ACCOUNTS PAYABLE CLERK): Reports unable to get a complete erection, [...] May try a Vitamin E daily supplement. Portuguese Red Ginseng 900 mg three times a day supplement may help. Some medications may help if not contraindicated, like Viagra (Sildenafil), Levitra (Vardenafil), Cialis (Tadalafil). Mixed hyperlipidemia 06/17/2018 Assessment & Plan (07/15/2018 1:13 PM ACCOUNTS PAYABLE CLERK): Lipid abnormalities are unchanged. Nutritional counseling was provided. Lipids will be reassessed in 6 months. Encourage healthy diet. Assessment & Plan (06/18/2018 5:05 PM ACCOUNTS PAYABLE CLERK): Lipid abnormalities are unchanged. Nutritional counseling was [...] 06/18/20182023 Assessment & Plan (07/15/2018 8:45 AM ACCOUNTS PAYABLE CLERK): Obesity is unchanged. Pt. Has been trying [...] greens, fat-free milk, cottage cheese, nuts like wxpdosp-[id number]-nahegnj, protein bars with 10-15 g of protein and 20-30 g of carbohydrate. Choose whole grain breads and pastas, brown rice, sweet potatoes, read onions--these whole grains absorb more slowly thus blood sugar does not surge so high so quickly. Avoid drinking juice, eat a piece of fruit instead. Assessment & Plan (06/18/2018 4:54 PM ACCOUNTS PAYABLE CLERK): Obesity is unchanged. Discussed the patient's BMI. [...] greens, fat-free milk, cottage cheese, nuts like wcwbqpp-jfuxldo-ahqmzwe, protein bars with 10-15 g of protein [...] 09/26/2020,09/05/2020 Pneumococcal Conjugate Pcv20 01/01/2022 Tdap 01/24/2024,06/01/2011 Social History Tobacco Use Types Packs/Day Years Used Date Smoking Tobacco: Every Day Cigarettes 0.5 15 Passive Smoke Exposure: Current Smokeless Tobacco: Never Tobacco Cessation:Ready to Q uit: Yes; Counseling Given: Not Answered Comments:Smoking History Packs/day: 0.5 Packs Alcohol Use Standard Drinks/Week Comments Yes 20 (1 standard drink = 0.6 oz pu re alcohol) [facility] [employer] Answer Date Recorded In the past 12 months has e [employer], gas, oil, or water [employer] threatened to shut off services in your [...] 01/24/2024 How often do you attend chur ch or congregation services? More than 4 times per year 01/24/2024 Do you belong to any clubs o r organizations such as yazidism groups, unions, fraternal or athletic groups, or [...] staff should administer the PHQ-9) 0 01/24/2024 [facility] of Occupat ional [facility] - Occupational Stress Questionnaire Answer Date [...] any time in the past 12 m [facility], were you homeless or living in a alf (including now)? No 01/24/2024 Personal Safety Answer Date Recorded Have you ever been in or are you currently in a harmful physical or emotional relationship or is someone making you feel afraid or unsafe? Denies 01/20/2023 Sex and Gender Information Value Date Recorded Sex Assigned at Not on file Legal Sex Male 1:01 PM ACCOUNTS PAYABLE CLERK Gender Identity Not on file Sexual Orientation Not on file Last Filed Vital Signs Vital Sign Reading [...] 01/24/2024 3:37 PM CDT Plan of Treatment Not on file Procedures Procedure Name Priority Date/Time Associated Diagnosis [...] last revised on 2019. Testing performed by: [facility], [address] [place] [address]., [id number] Blood 01/21/2024 2:44 PM CDT 01/21/2024 8:53 PM CDT us Gissel Sanders NP LAB MICROBIOLOGY - GENERAL ORDER ALFREDO Edited Result - Final [facility] ([place]) 1 [facility] Department [place] [address] from Last 3 Months or Most Recently Relevant to Health Maintenance [facility] C[facility]AH CIGNA Advance Directives For more information, please contact: [phone] * Full Code (Latest Code Status on File) Date Activated Date Inactivated Comments 04/03/2022 8:55 AM 04/03/2022 2:23 PM * Full Code Date Activated Date Inactivated Comments 04/03/2022 8:54 AM 04/03/2022 8:55 AM * Full Code Date Activated Date Inactivated Comments 02/07/2021 8:07 AM 02/07/2021 2:22 PM Care Teams Cover Machine Operator Relationship Specialty Start Date End [place] [address] PCP - General Family Medicine 12/19/20
--- OUTSIDE RECORDS SUMMARY | 2024-10-06 10:56 | XMS_ITS ---
Author Organization [facility] Address [address] [place] [address] Phone Care Team Providers Care Elementary Vocal Music Teacher Name Role Phone FAUSTO CAGE MD Primary Care Provider [phone] NINO KIM, GIBRAN Anthony Unavailable Plan of Treatment Findings Encounter Date The options include close observation SI CK VISIT with JESSA A DAMION SUPERVISOR MOTORCYCLE REPAIR SHOP-C 06/02/2020 Last Documented On 0 10:35AM ; [facility] Watch for signs/symptoms of infection, return to the clinic if seen SICK VISIT with JESSA A DAMION SUPERVISOR MOTORCYCLE REPAIR SHOP-C 06/02/2020 Last Documented On 0 10:35AM ; [facility] Instructions to patient Watch for signs/symptoms of infection, return to the clinic if seen Last Documented On 0 10:30AM ; [facility] Assessments Includes: Assessments for all patient encounters Findings Encounter Date Exposure to a viral disease SICK VISIT with TRAC IE A DAMION SUPERVISOR MOTORCYCLE REPAIR SHOP-C 06/02/2020 Last Documented On 0 10:35AM ; [facility] Viral syndrome SICK VISIT with JESSA A DAMION SUPERVISOR MOTORCYCLE REPAIR SHOP-C 06/02/2020 Last Documented On 0 10:35AM ; [facility] Instructions Includes: Instructions for all patient encounters Instructions to patient Watch for signs/symptoms of infection, return to the clinic if seen Last Documented On 0 10:30AM ; [facility] Medical Equipment - Implanted Devices Includes: Current and historical Devices No Medical Equipment Recorded Medications Administered Includes: Administered Medications in patient's chart No Administered Medications Recorded Results Includes: Results from 10/07/2023 through 10/06/2024 No Results Recorded For Specified Dates History of Present Illness History of Present Illness not supported for this document type No History of Present Illness Recorded Social History Description Last Updated No travel 06/02/2020 Last Documented On 0 10:35AM ; [facility] Smoking Status Unknown Medical History Includes: Medical History in patient's chart Description Last Updated Exposure to a contagious disease 020 Last Documented On 0 10:35AM ; [facility] Family History Includes: Family History in patient's chart No Family History Recorded Review of Systems Review of Systems not supported for this document type No Review of Systems Recorded Mental Status No Mental Status Recorded Functional Status No Functional Status Recorded Physical Exam Physical Exam not supported for this document type No Physical Exam Recorded Insurance Includes: Active Insurance Policies Plan Name Member ID Group # Subscriber Relationship Effect charlotte Dates [id number] JASMINE APPIAH Self Clinical Notes Includes: Signed Clinical Notes starting from 07/17/2022 No Clinical Notes Recorded
--- OUTSIDE RECORDS SUMMARY | 2024-10-06 11:02 | XMS_ITS ---
Author Organization [facility] Address [address] [place] [address] Phone Care Team Providers Care Can Coverer Name Role Phone FAUSTO CAGE MD Primary Care Provider [phone] NINO KIM, GIBRAN Anthony Unavailable Plan of Treatment Findings Encounter Date The options include close observation SI CK VISIT with JESSA A DAMION CUSTODIAL AIDE-C 06/02/2020 Last Documented On 0 10:35AM ; [facility] Watch for signs/symptoms of infection, return to the clinic if seen SICK VISIT with JESSA A DAMION CUSTODIAL AIDE-C 06/02/2020 Last Documented On 0 10:35AM ; [facility] Instructions to patient Watch for signs/symptoms of infection, return to the clinic if seen Last Documented On 0 10:30AM ; [facility] Assessments Includes: Assessments for all patient encounters Findings Encounter Date Exposure to a viral disease SICK VISIT with TRAC IE A DAMION CUSTODIAL AIDE-C 06/02/2020 Last Documented On 0 10:35AM ; [facility] Viral syndrome SICK VISIT with JESSA A DAMION CUSTODIAL AIDE-C 06/02/2020 Last Documented On 0 10:35AM ; [facility] Instructions Includes: Instructions for all patient encounters Instructions to patient Watch for signs/symptoms of infection, return to the clinic if seen Last Documented On 0 10:30AM ; [facility] Medical Equipment - Implanted Devices [...] 06/02/2020 Last Documented On 0 10:35AM ; [facility] Smoking Status Unknown Medical History Includes: Medical History in patient's chart Description Last Updated Exposure to a contagious disease 020 Last Documented On 0 10:35AM ; [facility] Family History Includes: Family History [...] Group # Subscriber Relationship Effect charlotte Dates [id number] JASMINE APPIAH Self Clinical Notes Includes: Signed Clinical Notes starting from 07/17/2022 No Clinical Notes Recorded
--- OUTSIDE RECORDS SUMMARY | 2024-10-06 11:02 | XMS_ITS | Clinical Summary ---
Author Organization [facility] Address [address] [place] [address] Phone Care Team Providers Care Stitcher Special Machine Name Role Phone FAUSTO CAGE MD Primary Care Provider [phone] GIBRAN ONEILL MD Unavailable Unavailable Reason for Visit and Chief Complaint The Chief Complaint is: COVID exposure on to co-worker, sx of cough & PERSON off & on,along with runny nose-green draiange x 2d, also loss of taste this morning Plan of Treatment - The options include close observation - Last Documented On 06/02/2020 10:35AM ; [facility] - Watch for signs/symptoms of infection, return to the clinic if seen - Last Documented On 06/02/2020 10:35AM ; [facility] Patient is to quarantine for 14 days past last exposure OTC medication for fever and/or bodyaches Call clinic for worsening symptoms or concerns Go to ED for severe difficulty breathing or lethargy - Last Documented On 06/02/2020 10:35AM ; [facility] Pending Tests Order Diagnosis Results Due Ordering P rovider Lab COVID-19 PCR ([facility]) 06/09/[address] SPRINKLER -C Last Documented On 4 2:45PM ; [facility] Instructions to patient Watch for signs/symptoms of infection, return to the clinic if seen Last Documented On 0 10:30AM ; [facility] Assessments Includes: Assessments from this encounter Findings - Exposure to a viral disease - Last Documented On 06/02/2020 10:35AM ; [facility] - Viral syndrome - Last Documented On 06/02/2020 10:35AM ; [facility] Instructions Includes: Instructions from this encounter Instructions to patient Watch for signs/symptoms of infection, return to the clinic if seen Last Documented On 0 10:30AM ; [facility] Medical Equipment - Implanted Devices Includes: Current Devices No Medical Equipment Recorded Medications Administered Includes: Administered Medications from this encounter No Administered Medications Recorded Vital Signs Includes: Vital Signs from this encounter Vital Name 06/02/2020 10:10A Pulse Rate-Sitting (bpm) 108 Temp-Oral (F) 99 Oxygen Saturation (%) 98 Last Documented: On 06/02/2020 10:10A M ; [facility] Results Includes: Results discussed during this encounter [...] 06/02/2020 Last Documented On 0 10:35AM ; [facility] Smoking Status Unknown Medical History Includes: Medical History addressed during this encounter Description Last Updated Exposure to a contagious disease 020 Last Documented On 0 10:35AM ; [facility] Family History Includes: Family History addressed during [...] Check-Out Time Diagnosis SICK VISIT [address] SPRINKLER-C [facility] 0 10:00AM 10:30AM Exposure To Contagious Viral Disease,Viral Syndrome Insurance Includes: Active Insurance Policies Plan Name Member ID Group # Subscriber Relationship Effect charlotte Dates - [id number] JASMINE APPIAH Self Clinical Notes Includes: Clinical Notes from this encounter No Clinical Notes Recorded
== END 2024-10-06 10:59 | disposition home or self-care (01) ==
PROVIDERS: Emergency Provider Nurse Practitioner; PCP Hospitalist
DX: H66.92 Otitis media, unspecified, left ear (principal); J01.40 Acute pansinusitis, unspecified; F17.210 Nicotine dependence, cigarettes, uncomplicated; K21.9 Gastro-esophageal reflux disease without esophagitis
CPT/HCPCS: 99213; G0463

== ENCOUNTER 2024-10-10 12:17 | Emergency (ER) | payer OTHER, SELFPAY ==
[2024-10-10 12:22] VITALS: BP 147/99; PULSE 93; RESP 16; TEMP 36.7; O2SAT 98
--- NOTE | 2024-10-10 13:16 | ED_ITS ---
HPI - URI/Sore Throat General Chief Complaint: Upper Respiratory Infection Stated Complaint: meds not working/chest/throat/claudio hurts Time Seen by Provider: 10/10/24 13:15 Source: patient, RN notes reviewed and old records reviewed Mode of arrival: ambulatory Limitations: no limitations History of Present Illness HPI Narrative: 38 year old male who presents to [facility] care with complaints of headache which he rates as 8/10, cough which is productive and sore throat that he rates 6/10 today. Patient reports that he was seen in the clinic on 10/06/2024 and he received Amoxicillin for left ear infection and sinusitis but he states that he feels he is getting worse. Patient reports that he has been taking NyQuil at night and he has taken some Ibuprofen MD elicited complaint: cough and sore throat Pertinent past history: pneumonia and sinusitis Onset (ago): day(s) (8 days with increased symptoms past 2 days) Pain scale (0-10): 6 Description of mucous: green and other (thick white) Able to tolerate fluids by mouth: Yes Treatments prior to arrival: ibuprofen, antibiotics and other (NyQuil) Related Data Home Medications ?Medication ?Instructions ?Recorded ?Confirmed ?Last Taken ?Type Allergy Med. 05/24/24 Unknown History omeprazole 05/24/24 Unknown History Allergies Allergy/AdvReac Type Severity Reaction Status Date / Time No Known Allergies Allergy Verified 10/10/24 12:45 Review of Systems Review of Systems: CONSTITUTIONAL: Repots malaise, chills, sweats, or fever. EYES: Denies visual changes, redness, or discharge. ENT: Reports rhinorrhea, congestion, sinus pain,left otalgia and sore throat. CARDIOVASCULAR: Denies chest pain, palpitations, or edema. RESPIRATORY: Reports productive hacking cough.? Denies dyspnea. GASTROINTESTINAL: Denies abdominal pain, nausea, vomiting, diarrhea SKIN: Denies rash or itching. MUSCULOSKELETAL: Denies myalgia. NEUROLOGIC: Reports headache. All systems reviewed & are unremarkable except as noted in HPI and below PMFSH Past Medical History Medical History GERD (gastroesophageal reflux disease) Pneumonia with sepsis Surgical History Surgical History History of tonsillectomy Social History Social History Smoking status: Current every day smoker Tobacco type: cigarettes Alcohol intake: current Substance use type: does not use Living arrangements: with family Gender identity (if verbalized by the patient): Male Comments At time of signature, agree with nursing past medical, surgical, social and family history. There is no relevant family history pertinent to the presenting complaint Exam Narrative: GENERAL: ill appearing, well-nourished, and in no acute distress. HEAD: Normocephalic EYES: PERRLA, conjunctivae clear ENT: Nares clear, turbinates edematous and erythematous, clear discharge. Mucous membranes moist.Left TM red, Right TM pearly esquivel with dull light reflex, no tragal tenderness. Oropharynx erythematous without lesions. Tonsils not present and throat without exudate, no drooling, no hoarseness, no trismus, uvula midline.post nasal drainage NECK: Supple. No lymphadenopathy CHEST: Coarse to auscultation, breath sounds equal. No wheezing, rhonchi, rales, or stridor. No respiratory distress, speaks in full sentences.productive cough SAO2 98% on room air HEART: Regular rate and rhythm. No murmur heard. SKIN: Warm, dry, no rash. NEURO: Alert and oriented x3. PSYCH: Normal mood and affect Course Course Emergency Course: Patient is aware of diagnosis, understands and agrees to treatment plan.? Anticipatory guidance given.? Patient agrees to follow-up as directed and is aware of reasons to seek care at the emergency department. Portions of this record may have been created with voice recognition software Level of Care: Express Care Visit Vital Signs Vital signs: Vital Signs Temperature 36.7 C 10/10/24 12:22 Pulse Rate 93 10/10/24 12:22 Respiratory Rate 16 10/10/24 12:22 Blood Pressure 147/99 H 10/10/24 12:22 Pulse Oximetry 98 10/10/24 12:22 Oxygen Delivery Room Air 10/10/24 12:22 Temperature 36.7 C 10/10/24 12:22 Pulse Rate 93 10/10/24 12:22 Respiratory Rate 16 10/10/24 12:22 Blood Pressure 147/99 H 10/10/24 12:22 Pulse Oximetry 98 10/10/24 12:22 Oxygen Delivery Room Air 10/10/24 12:22 Reviewed MDM - URI/Sore Throat MDM Narrative Medical decision making narrative: Differential diagnosis considered: Rousseau virus, strep pharyngitis, allergic rhinitis, upper respiratory tract infection, sinusitis, rhinosinusitis, nasopharyngitis. viral pharyngitis, otitis media, otitis externa, pneumonia, bronchitis, viral cough syndrome, viral syndrome, and influenza.? Exam findings show no acute concerns or changes; patient is non-toxic appearing and is in no distress.? Patient is appropriate for outpatient treatment and follow-up. Differential Diagnosis Differential diagnosis: Likely upper respiratory infection, otitis media, sinusitis, viral infection, pharyngitis and other (acute cough) Medical Records Attestation: I reviewed the patient's medical records. Lab Data Attestation: I reviewed the patient's lab results. Lab results narrative: COVID antigen negative, Influenza A negative, Influenza B negative, strep screen negative, culture sent Labs: Lab Results 10/10/24 10/10/24 Range/Units 13:35 13:46 POC Influenza A Ag Negative (Negative) POC Influenza B Ag Negative (Negative) POC SARS CoV-2 Ag Negative (Negative) POC Grp A Strep Screen Negative (Negative) reviewed Critical Care Time Critical Care Time Critical Care Time: No Discharge Plan Discharge Clinical Impression: Acute cough Sinusitis Qualifiers: Sinusitis location: pansinusitis Chronicity: acute Recurrence: not specified as recurrent Qualified Code(s): J01.40 - Acute pansinusitis, unspecified Patient Disposition: Home Condition: Stable Instructions: Antibiotic Form, Sinusitis (ED), Acute Cough (ED) Additional Instructions: Increase fluids especially juices and water Psuk-[id number]-dyvssqg cough and cold medicine of your choice for your symptoms Continue Mucinex daily Zyrtec Claritin or Lorraine daily Tylenol or ibuprofen for any fever pain Continue your inhaler/nebulizer as directed Steroids as directed--take with food heat to the face 20-30 minutes 4-6 times a day for pain Salt water gargles, throat lozenges or throat sprays as desired Antibiotic as directed--finished the medication If your symptoms persist, change or worsen significantly before you can contact your personal physician then please, without delay, go to the emergency department for further evaluation. Follow-up with PCP in 7-10 days or sooner if needed Follow up with PCP soon in regards to your blood pressure which is elevated above threshold for referral. Blood pressure above 120/80 may indicate pre- hypertension. 147/99 Patient Language: Sami Prescriptions: New prednisone 20 mg tablet 40 mg PO DAILY 5 Days Qty: 10 0RF amoxicillin-pot clavulanate 875-125 mg tablet 1 tablet PO Q12H Qty: 20 0RF Rx Instructions: Take all doses albuterol sulfate [Ventolin HFA] 90 mcg/actuation HFA aerosol inhaler 2 puff inhalation QID PRN (Reason: shortness of breath or wheezing) Qty: 6.7 0RF Rx Instructions: Whenever covered on insurance No Action Allergy Med. omeprazole Follow-up/Referrals: UNKNOWN,DOCTOR [Primary Care Provider] - Time of Disposition: 13:36 Quality Beck Coma Scale Eyes: Open Verbal: Oriented and Alert Motor: Follows Commands [place] Coma Total Score: 15
--- OUTSIDE RECORDS SUMMARY | 2024-10-10 13:16 | XMS_ITS ---
Care Plan - [facility] Created on: October 10, 2024 JASMINE APPIAH : 1985 Sex: Male Author Organization [facility] Address [address] [place] [id number] Phone Care Team Providers Care Prime Minister Name Role Phone FAUSTO CAGE MD Primary Care Provider [phone] NINO KIM, GIBRAN Anthony
--- OUTSIDE RECORDS SUMMARY | 2024-10-10 13:16 | XMS_ITS | Referral Summary ---
Author Organization [facility] Address [address] [place] [address] Care Team Providers Care Bridge Instructor Name Role Phone Flako James MD Primary Care Provider [phone] Allergies No known active allergies Medications chlorpheniramine [...] 07/15/2018 Assessment & Plan (07/15/2018 1:04 PM KEY ACCOUNT MANAGER): Images from the original note were not [...] own Assessment & Plan (07/15/2018 8:44 AM KEY ACCOUNT MANAGER): Quit Smoking https://smokefree.gov/ Nicotine replacement therapy (NRT) [...] SmokefreeTXT or calling a quitline. Using the Protecode jose for tips and inspiration to help [...] Wellbutrin. Assessment & Plan (06/18/2018 4:56 PM KEY ACCOUNT MANAGER): Quit Smoking https://smokefree.gov/ Nicotine replacement therapy (NRT) [...] SmokefreeTXT or calling a quitline. Using the Protecode jose for tips and inspiration to help [...] modifications Assessment & Plan (07/15/2018 8:49 AM KEY ACCOUNT MANAGER): BP still elevated over 130/80 Will increase [...] 130/80 Assessment & Plan (06/18/2018 5:09 PM KEY ACCOUNT MANAGER): Pt. Has consistent BP greater than 130/80, [...] 06/17/2018 Assessment & Plan (07/15/2018 8:47 AM KEY ACCOUNT MANAGER): Large number/cluster of genital warts to the [...] 2:00 Assessment & Plan (06/18/2018 6:02 PM KEY ACCOUNT MANAGER): Large number/cluster of genital warts to the [...] 06/17/2018 Assessment & Plan (07/15/2018 8:43 AM KEY ACCOUNT MANAGER): Reports unable to get a complete erection, [...] (Tadalafil). Assessment & Plan (06/18/2018 4:59 PM KEY ACCOUNT MANAGER): Reports unable to get a complete erection, [...] 06/17/2018 Assessment & Plan (07/15/2018 1:13 PM KEY ACCOUNT MANAGER): Lipid abnormalities are unchanged. Nutritional counseling was provided. Lipids will be reassessed in 6 months. Encourage healthy diet. Assessment & Plan (06/18/2018 5:05 PM KEY ACCOUNT MANAGER): Lipid abnormalities are unchanged. Nutritional counseling was [...] 06/18/20182023 Assessment & Plan (07/15/2018 8:45 AM KEY ACCOUNT MANAGER): Obesity is unchanged. Pt. Has been trying [...] greens, fat-free milk, cottage cheese, nuts like sbbyicn-mswwqdo-nguvtlo, protein bars with 10-15 g of protein and 20-30 g of carbohydrate. Choose whole grain breads and pastas, brown rice, sweet potatoes, read onions--these whole grains absorb more slowly thus blood sugar does not surge so high so quickly. Avoid drinking juice, eat a piece of fruit instead. Assessment & Plan (06/18/2018 4:54 PM KEY ACCOUNT MANAGER): Obesity is unchanged. Discussed the patient's BMI. [...] greens, fat-free milk, cottage cheese, nuts like tastolu-seyfldh-lpebbwr, protein bars with 10-15 g of protein [...] drink = 0.6 oz pu re alcohol) [facility] [employer] Answer Date Recorded In the past 12 months has e [employer], gas, oil, or water [employer] threatened to shut off services in your [...] often do you attend chur ch or anabaptism services? More than 4 times per year 01/24/2024 Do you belong to any clubs o r organizations such as mandaen groups, unions, fraternal or athletic groups, or [...] staff should administer the PHQ-9) 0 01/24/2024 [facility]at ional [facility] - Occupational Stress Questionnaire Answer Date Recorded [...] any time in the past 12 m [facility], were you homeless or living in a skilled nursing (including now)? No 01/24/2024 Personal Safety Answer Date Recorded Have you ever been in or are you currently in a harmful physical or emotional relationship or is someone making you feel afraid or unsafe? Denies 01/20/2023 Sex and Gender Information Value Date Recorded Sex Assigned at Not on file Legal Sex Male 1:01 PM KEY ACCOUNT MANAGER Gender Identity Not on file Sexual Orientation [...] last revised on 2019. Testing performed by: [facility], [address] [place] [address]., [id number] Blood 01/21/2024 2:44 PM CDT 01/21/2024 8:53 PM CDT us Gissel Sanders NP LAB MICROBIOLOGY - GENERAL ORDER ALFREDO Edited Result - Final [facility] ([place]) 1 [facility] Department [place] [address] from Last 3 Months or Most Recently Relevant to Health Maintenance [facility] C[facility]AALIYAH CIGNA Advance Directives For more information, please contact: [phone] * Full Code (Latest Code Status on File) Date Activated Date Inactivated Comments 04/03/2022 8:55 AM 04/03/2022 2:23 PM * Full Code Date Activated Date Inactivated Comments 04/03/2022 8:54 AM 04/03/2022 8:55 AM * Full Code Date Activated Date Inactivated Comments 02/07/2021 8:07 AM 02/07/2021 2:22 PM Care Teams Bridge Instructor Relationship Specialty Start Date End [place] [address] PCP - General Family Medicine 12/19/20
--- OUTSIDE RECORDS SUMMARY | 2024-10-10 13:16 | XMS_ITS ---
Author Organization [facility] Address [address] [place] [address] Phone Care Team Providers Care Chemical Weigher Name Role Phone FAUSTO CAGE MD Primary Care Provider [phone] NINO KIM, GIBRAN Anthony Unavailable Plan of Treatment Findings Encounter Date The options include close observation SI CK VISIT with JESSA A DAMION CORROSION CONTROL ENGINEER-C 06/02/2020 Last Documented On 0 10:35AM ; [facility] Watch for signs/symptoms of infection, return to the clinic if seen SICK VISIT with JESSA A DAMION CORROSION CONTROL ENGINEER-C 06/02/2020 Last Documented On 0 10:35AM ; [facility] Instructions to patient Watch for signs/symptoms of infection, return to the clinic if seen Last Documented On 0 10:30AM ; [facility] Assessments Includes: Assessments for all patient encounters Findings Encounter Date Exposure to a viral disease SICK VISIT with TRAC IE A DAMION CORROSION CONTROL ENGINEER-C 06/02/2020 Last Documented On 0 10:35AM ; [facility] Viral syndrome SICK VISIT with JESSA A DAMION CORROSION CONTROL ENGINEER-C 06/02/2020 Last Documented On 0 10:35AM ; [facility] Instructions Includes: Instructions for all patient encounters Instructions to patient Watch for signs/symptoms of infection, return to the clinic if seen Last Documented On 0 10:30AM ; [facility] Medical Equipment - Implanted Devices Includes: Current and historical Devices No Medical Equipment Recorded Medications Administered Includes: Administered Medications in patient's chart No Administered Medications Recorded Results Includes: Results from 10/11/2023 through 10/10/2024 No Results Recorded For Specified Dates History of Present Illness History of Present Illness not supported for this document type No History of Present Illness Recorded Social History Description Last Updated No travel 06/02/2020 Last Documented On 0 10:35AM ; [facility] Smoking Status Unknown Medical History Includes: Medical History in patient's chart Description Last Updated Exposure to a contagious disease 020 Last Documented On 0 10:35AM ; [facility] Family History Includes: Family History [...] Group # Subscriber Relationship Effect charlotte Dates [id number] JASMINE APPIAH Self Clinical Notes Includes: Signed Clinical Notes starting from 07/17/2022 No Clinical Notes Recorded
--- OUTSIDE RECORDS SUMMARY | 2024-10-10 13:16 | XMS_ITS | Clinical Summary ---
Author Organization [facility] Address [address] [place] [address] Care Team Providers Care Land Developer Name Role Phone Flako James MD Primary Care Provider [phone] Allergies No known active allergies Medications chlorpheniramine [...] 07/15/2018 Assessment & Plan (07/15/2018 1:04 PM SUPERINTENDENT DRILLING): Images from the original note were not [...] own Assessment & Plan (07/15/2018 8:44 AM SUPERINTENDENT DRILLING): Quit Smoking https://smokefree.gov/ Nicotine replacement therapy (NRT) [...] SmokefreeTXT or calling a quitline. Using the [employer] jose for tips and inspiration to help [...] Wellbutrin. Assessment & Plan (06/18/2018 4:56 PM SUPERINTENDENT DRILLING): Quit Smoking https://smokefree.gov/ Nicotine replacement therapy (NRT) [...] SmokefreeTXT or calling a quitline. Using the Gamemaster jose for tips and inspiration to help [...] modifications Assessment & Plan (07/15/2018 8:49 AM SUPERINTENDENT DRILLING): BP still elevated over 130/80 Will increase [...] 130/80 Assessment & Plan (06/18/2018 5:09 PM SUPERINTENDENT DRILLING): Pt. Has consistent BP greater than 130/80, [...] 06/17/2018 Assessment & Plan (07/15/2018 8:47 AM SUPERINTENDENT DRILLING): Large number/cluster of genital warts to the [...] 2:00 Assessment & Plan (06/18/2018 6:02 PM SUPERINTENDENT DRILLING): Large number/cluster of genital warts to the [...] 06/17/2018 Assessment & Plan (07/15/2018 8:43 AM SUPERINTENDENT DRILLING): Reports unable to get a complete erection, [...] May try a Vitamin E daily supplement. Hungarian Red Ginseng 900 mg three times a day supplement may help. Some medications may help if not contraindicated, like Viagra (Sildenafil), Levitra (Vardenafil), Cialis (Tadalafil). Assessment & Plan (06/18/2018 4:59 PM SUPERINTENDENT DRILLING): Reports unable to get a complete erection, [...] May try a Vitamin E daily supplement. Hungarian Red Ginseng 900 mg three times a day supplement may help. Some medications may help if not contraindicated, like Viagra (Sildenafil), Levitra (Vardenafil), Cialis (Tadalafil). Mixed hyperlipidemia 06/17/2018 Assessment & Plan (07/15/2018 1:13 PM SUPERINTENDENT DRILLING): Lipid abnormalities are unchanged. Nutritional counseling was provided. Lipids will be reassessed in 6 months. Encourage healthy diet. Assessment & Plan (06/18/2018 5:05 PM SUPERINTENDENT DRILLING): Lipid abnormalities are unchanged. Nutritional counseling was [...] 06/18/20182023 Assessment & Plan (07/15/2018 8:45 AM SUPERINTENDENT DRILLING): Obesity is unchanged. Pt. Has been trying [...] greens, fat-free milk, cottage cheese, nuts like qmbjujw-paayjoz-eyshwgt, protein bars with 10-15 g of protein and 20-30 g of carbohydrate. Choose whole grain breads and pastas, brown rice, sweet potatoes, read onions--these whole grains absorb more slowly thus blood sugar does not surge so high so quickly. Avoid drinking juice, eat a piece of fruit instead. Assessment & Plan (06/18/2018 4:54 PM SUPERINTENDENT DRILLING): Obesity is unchanged. Discussed the patient's BMI. [...] greens, fat-free milk, cottage cheese, nuts like qjcucxi-pszquqo-vyuqwkp, protein bars with 10-15 g of protein [...] drink = 0.6 oz pu re alcohol) [facility] [employer] Answer Date Recorded In the past 12 months has e [employer], gas, oil, or water [employer] threatened to shut off services in your [...] How often do you attend chur or rastafari services? More than 4 times per year 01/24/2024 Do you belong to any clubs o r organizations such as sabianist groups, unions, fraternal or athletic groups, or [...] staff should administer the PHQ-9) 0 01/24/2024 [facility] of Occupat ional [facility] - Occupational Stress Questionnaire Answer Date Recorded [...] any time in the past 12 m [facility], were you homeless or living in a halfway (including now)? No 01/24/2024 Personal Safety Answer Date Recorded Have you ever been in or are you currently in a harmful physical or emotional relationship or is someone making you feel afraid or unsafe? Denies 01/20/2023 Sex and Gender Information Value Date Recorded Sex Assigned at Not on file Legal Sex Male 1:01 PM SUPERINTENDENT DRILLING Gender Identity Not on file Sexual Orientation [...] last revised on 2019. Testing performed by: [facility], [address] [place] [address], [place]., [address] Blood 01/21/2024 2:44 PM CDT 01/21/2024 8:53 PM CDT us Gissel Sanders NP LAB MICROBIOLOGY - GENERAL ORDER ALFREDO Edited Result - Final [facility] ([facility]) 1 [facility] Department [place] [address] from Last 3 Months or Most Recently Relevant to Health Maintenance Insurance CIGNA IBEW CIGNA CIGNA Advance Directives For more information, please contact: [phone] * Full Code (Latest Code Status on File) Date Activated Date Inactivated Comments 04/03/2022 8:55 AM 04/03/2022 2:23 PM * Full Code Date Activated Date Inactivated Comments 04/03/2022 8:54 AM 04/03/2022 8:55 AM * Full Code Date Activated Date Inactivated Comments 02/07/2021 8:07 AM 02/07/2021 2:22 PM Care Teams Land Developer Relationship Specialty Start Date End Date Flako James MD [address] [place] [address] PCP - General Family Medicine 12/19/20
--- OUTSIDE RECORDS SUMMARY | 2024-10-10 13:16 | XMS_ITS | Clinical Summary ---
Author Organization [facility] Address [address] [place] [address] Phone Care Team Providers Care Sports Complex Attendant Name Role Phone FAUSTO CAGE MD Primary Care Provider [phone] GIBRAN ONEILL MD Unavailable Unavailable Reason for Visit and Chief Complaint The Chief Complaint is: COVID exposure on to co-worker, sx of cough & PERSON off & on,along with runny nose-green draiange x 2d, also loss of taste this morning Plan of Treatment - The options include close observation - Last Documented On 06/02/2020 10:35AM ; [facility] - Watch for signs/symptoms of [...] Lab COVID-19 PCR ([facility]) 06/09/20 JESSA BRUNO BEAUTY COUNSELOR -C Last Documented On 4 2:45PM ; [facility] Instructions to patient Watch for signs/symptoms of infection, return to the clinic if seen Last Documented On 0 10:30AM ; [facility] Assessments Includes: Assessments from this encounter Findings - Exposure to a viral disease - Last Documented On 06/02/2020 10:35AM ; [facility] - Viral syndrome - Last Documented On 06/02/2020 10:35AM ; [facility] Instructions Includes: Instructions from this encounter Instructions to patient Watch for signs/symptoms of infection, return to the clinic if seen Last Documented On 0 10:30AM ; [facility] Medical Equipment - Implanted Devices Includes: Current Devices No Medical Equipment Recorded Medications Administered Includes: Administered Medications from this encounter No Administered Medications Recorded Vital Signs Includes: Vital Signs from this encounter Vital Name 06/02/2020 10:10A Pulse Rate-Sitting (bpm) 108 Temp-Oral (F) 99 Oxygen Saturation (%) 98 Last Documented: On 06/02/2020 10:10A M ; [facility] Results Includes: Results discussed during this encounter [...] 06/02/2020 Last Documented On 0 10:35AM ; [facility] Smoking Status Unknown Medical History Includes: Medical History addressed during this encounter Description Last Updated Exposure to a contagious disease 020 Last Documented On 0 10:35AM ; [facility] Family History Includes: Family History addressed during [...] Check-Out Time Diagnosis SICK VISIT JESSA BRUNO BEAUTY COUNSELOR-C [facility] 0 10:00AM 10:30AM Exposure To Contagious Viral Disease,Viral Syndrome Insurance Includes: Active Insurance Policies Plan Name Member ID Group # Subscriber Relationship Effect charlotte Dates - [id number] JASMINE APPIAH Self Clinical Notes Includes: Clinical Notes from this encounter No Clinical Notes Recorded
--- OUTSIDE RECORDS SUMMARY | 2024-10-10 13:18 | XMS_ITS | Clinical Summary ---
Author Organization [facility] Address [address] [place] [address] Phone Care Team Providers Care Engineering Vice President Name Role Phone FAUSTO CAGE MD Primary Care Provider [phone] GIBRAN ONEILL MD Unavailable Unavailable Reason for Visit and Chief Complaint The Chief Complaint is: COVID exposure on to co-worker, sx of cough & PERSON off & on,along with runny nose-green draiange x 2d, also loss of taste this morning Plan of Treatment - The options include close observation - Last Documented On 06/02/2020 10:35AM ; [facility] - Watch for signs/symptoms of infection, return to the clinic if seen - Last Documented On 06/02/2020 10:35AM ; [facility] Patient is to quarantine for 14 days past last exposure OTC medication for fever and/or bodyaches Call clinic for worsening symptoms or concerns Go to ED for severe difficulty breathing or lethargy - Last Documented On 06/02/2020 10:35AM ; [facility] Pending Tests Order Diagnosis Results Due Ordering P rovider Lab COVID-19 PCR ([facility]) 06/09/20 JESSA BRUNO SPECIAL SERVICES DIRECTOR -C Last Documented On 4 2:45PM ; [facility] Instructions to patient Watch for signs/symptoms of infection, return to the clinic if seen Last Documented On 0 10:30AM ; [facility] Assessments Includes: Assessments from this encounter Findings - Exposure to a viral disease - Last Documented On 06/02/2020 10:35AM ; [facility] - Viral syndrome - Last Documented On 06/02/2020 10:35AM ; [facility] Instructions Includes: Instructions from this encounter Instructions to patient Watch for signs/symptoms of infection, return to the clinic if seen Last Documented On 0 10:30AM ; [facility] Medical Equipment - Implanted Devices Includes: Current Devices No Medical Equipment Recorded Medications Administered Includes: Administered Medications from this encounter No Administered Medications Recorded Vital Signs Includes: Vital Signs from this encounter Vital Name 06/02/2020 10:10A Pulse Rate-Sitting (bpm) 108 Temp-Oral (F) 99 Oxygen Saturation (%) 98 Last Documented: On 06/02/2020 10:10A M ; [facility] Results Includes: Results discussed during this [...] 06/02/2020 Last Documented On 0 10:35AM ; [facility] Smoking Status Unknown Medical History Includes: Medical History addressed during this encounter Description Last Updated Exposure to a contagious disease 020 Last Documented On 0 10:35AM ; [facility] Family History Includes: Family History addressed [...] Check-Out Time Diagnosis SICK VISIT JESSA BRUNO SPECIAL SERVICES DIRECTOR-C [facility] 0 10:00AM 10:30AM Exposure To Contagious Viral Disease,Viral Syndrome Insurance Includes: Active Insurance Policies Plan Name Member ID Group # Subscriber Relationship Effect charlotte Dates - [id number] JASMINE APPIAH Self Clinical Notes Includes: Clinical Notes from this encounter No Clinical Notes Recorded
--- OUTSIDE RECORDS SUMMARY | 2024-10-10 13:18 | XMS_ITS ---
Author Organization [facility] Address [address] [place] [address] Phone Care Team Providers Care Utility Aircrewman Name Role Phone FAUSTO CAGE MD Primary Care Provider [phone] NINO KIM, GIBRAN Anthony Unavailable Plan of Treatment Findings Encounter Date The options include close observation SI CK VISIT with JESSA [facility] CLINICAL SUPERVISOR-C 06/02/2020 Last Documented On 0 10:35AM ; [facility] Watch for signs/symptoms of infection, return to the clinic if seen SICK VISIT with JESSA [facility] CLINICAL SUPERVISOR-C 06/02/2020 Last Documented On 0 10:35AM ; [facility] Instructions to patient Watch for signs/symptoms of infection, return to the clinic if seen Last Documented On 0 10:30AM ; [facility] Assessments Includes: Assessments for all patient encounters Findings Encounter Date Exposure to a viral disease SICK VISIT with TRAC IE A [facility] CLINICAL SUPERVISOR-C 06/02/2020 Last Documented On 0 10:35AM ; [facility] Viral syndrome SICK VISIT with JESSA [facility] CLINICAL SUPERVISOR-C 06/02/2020 Last Documented On 0 10:35AM ; [facility] Instructions Includes: Instructions for all patient encounters Instructions to patient Watch for signs/symptoms of infection, return to the clinic if seen Last Documented On 0 10:30AM ; [facility] Medical Equipment - Implanted Devices Includes: [...] 06/02/2020 Last Documented On 0 10:35AM ; [facility] Smoking Status Unknown Medical History Includes: Medical History in patient's chart Description Last Updated Exposure to a contagious disease 020 Last Documented On 0 10:35AM ; [facility] Family History Includes: [...] Group # Subscriber Relationship Effect charlotte Dates [id number] JASMINE APPIAH Self Clinical Notes Includes: Signed Clinical Notes starting from 07/17/2022 No Clinical Notes Recorded
--- OUTSIDE RECORDS SUMMARY | 2024-10-10 13:18 | XMS_ITS ---
Care Plan - [facility] Created on: October 10, 2024 JASMINE APPIAH : 1985 Sex: Male Author Organization [facility] Address [address] [place] [id number] Phone Care Team Providers Care Dining Car Steward Name Role Phone AFUSTO CAGE MD Primary Care Provider [phone] NINO KIM, GIBRAN Anthony
[2024-10-10 13:49] LABS: EDCOVIDSCREEN Negative (Negative); EDINFLUASCREEN Negative (Negative); EDINFLUBSCREEN Negative (Negative)
[2024-10-10 13:49] LABS: EDSTREPNEGPOS1 Negative (Negative)
== END 2024-10-10 13:36 | disposition home or self-care (01) ==
PROVIDERS: Emergency Provider Registered Nurse
DX: R05.1 Acute cough (principal); J01.40 Acute pansinusitis, unspecified; Z20.822 Contact with and (suspected) exposure to COVID-19; F17.210 Nicotine dependence, cigarettes, uncomplicated; K21.9 Gastro-esophageal reflux disease without esophagitis
CPT/HCPCS: 87081; 87426; 87804; 87880; 99213; G0463